=== PATIENT | male | born 1960 | race Caucasian/White ===

== ENCOUNTER 2016-07-09 18:06 | Inpatient (IN) | payer MEDICARE ==
[~2016-07-09] VITALS: Ht 172.7 cm; Wt 75.3 kg
[2016-07-09] MEDS ORDERED: VANCOMYCIN PER PHARMACY IV ONE (18:30)
[2016-07-09] MEDS ORDERED: PLEASE ENTER HEIGHT AND WEIGHT MC SCH (18:30)
[2016-07-09] MEDS ORDERED: SODIUM CHLORIDE 0.9% 1,000ML IVBOLUS ONE (18:30)
[2016-07-09] MEDS ORDERED: SODIUM CHLORIDE FLUSH 10ML SYR IVF ONE (18:30)
[2016-07-09] MEDS ORDERED: PIPERACILLIN/TAZO/PMX 3.375GM 50 ML IVPB ONE (18:30)
[2016-07-09] MEDS ORDERED: PLEASE ENTER ALLERGIES MC SCH ×2 (18:30)
[2016-07-09] MEDS ORDERED: PIPERACILLIN/TAZO/PMX 3.375GM 50 ML ONE (18:49)
[2016-07-09 18:59] LABS: ASPARTATE AMINO TRANSFERASE 49 U/L (15-37); BLOOD UREA NITROGEN 24 mg/dL (7-18)
[2016-07-09 19:32] LABS: C-REACTIVE PROTEIN, QUANT > 19.00 mg/dL (0.02-0.49)
[2016-07-09] MEDS ORDERED: SODIUM CHLORIDE 0.9% 1,000 ML IV ONE (22:00)
[2016-07-09] MEDS ORDERED: SODIUM CHLORIDE 0.9% 1,000 ML IV SCH (23:52)
[2016-07-10] MEDS ORDERED: DOCUSATE 100 MG CAPSULE PO PRN
[2016-07-10] MEDS ORDERED: ACETAMINOPHEN 325 MG TABLET PO PRN
[2016-07-10] MEDS ORDERED: TEMAZEPAM 15 MG CAPSULE PO PRN
[2016-07-10] MEDS ORDERED: PHARMACOKINETIC MONITORING MC PRN (00:30)
[2016-07-10] MEDS ORDERED: VANCOMYCIN 1,800 MG in SODIUM CHLORIDE 0.9% 250 ML IV SCH (01:00)
[2016-07-10] MEDS: PIPERACILLIN/TAZO/PMX 3.375GM 50 ML IV SCH ×4 (01:53→20:42)
[2016-07-10 01:56] VITALS: BP 104/62
[2016-07-10 02:00] VITALS: BP 94/57
[2016-07-10] MEDS: INSULIN REGULAR 100 UNITS/ML, 3ML VIAL SQ-INSULIN SCH ×5 (02:28→20:54)
[2016-07-10 06:03] LABS: BLOOD UREA NITROGEN 27 mg/dL (7-18)
[2016-07-10] MEDS ORDERED: VANCOMYCIN PER PHARMACY MC PRN (06:30)
[2016-07-10] MEDS: SODIUM CHLORIDE 0.9% 1,000 ML IV SCH (08:03)
[2016-07-10 08:25] VITALS: BP 109/71
[2016-07-10] MEDS: HYDROmorphone 2 MG/ML, 1ML IV PRN ×2 (11:05→19:23)
[2016-07-10] MEDS ORDERED: GADOBUTROL 7.5 MMOL/7.5 ML PFS ONE (13:11)
[2016-07-10 13:55] VITALS: BP 106/60
[2016-07-10] MEDS ORDERED: SUCCINYLCHOLINE 20 MG/ML, 10ML ONE (16:24)
[2016-07-10] MEDS ORDERED: PROPOFOL 10 MG/ML, 20ML ONE (16:24)
[2016-07-10] MEDS ORDERED: METOCLOPRAMIDE 5 MG/ML, 2ML ONE (16:24)
[2016-07-10] MEDS ORDERED: NEOSTIGMINE 1 MG/ML, 10ML ONE (16:24)
[2016-07-10] MEDS ORDERED: ONDANSETRON 2MG/ML, 2ML ONE (16:24)
[2016-07-10] MEDS ORDERED: ROCURONIUM 10 MG/ML ONE (16:24)
[2016-07-10] MEDS ORDERED: GLYCOPYRROLATE 0.2MG/1ML ONE (16:24)
[2016-07-10] MEDS ORDERED: FENTANYL PF 100 MCG/2ML ONE ×3 (16:31→18:17)
[2016-07-10] MEDS ORDERED: OXYcodone 5 MG/5 ML ORAL.SOL UDC PO PRN (18:00)
[2016-07-10] MEDS ORDERED: ONDANSETRON 2MG/ML, 2ML IVPush PRN (18:00)
[2016-07-10] MEDS ORDERED: PROMETHAZINE 25 MG/ML, 1ML IV PRN (18:00)
[2016-07-10] MEDS ORDERED: hydrALAzine 20 MG/ML, 1ML IV PRN (18:00)
[2016-07-10] MEDS ORDERED: HYDROmorphone 1 MG/ML, 1ML IV PRN (18:00)
[2016-07-10] MEDS ORDERED: LABETALOL 5MG/ML, 20ML IV PRN ×2 (18:00)
[2016-07-10] MEDS ORDERED: OXYcodone 5 MG/5 ML ORAL.SOL UDC ONE (18:17)
[2016-07-10] MEDS: FENTANYL PF 100 MCG/2ML IV PRN ×2 (18:20→18:25)
[2016-07-10 18:53] VITALS: BP 95/66
[2016-07-10] MEDS: VANCOMYCIN 1,300 MG in SODIUM CHLORIDE 0.9% 250 ML IV SCH (21:00)
[2016-07-10 23:27] VITALS: BP 106/66
[2016-07-11] MEDS: HYDROmorphone 2 MG/ML, 1ML IV PRN (00:38)
[2016-07-11] MEDS: SODIUM CHLORIDE 0.9% 1,000 ML IV SCH ×3 (00:38→16:00)
[2016-07-11] MEDS: ONDANSETRON 2MG/ML, 2ML IVP PRN (01:42)
[2016-07-11] MEDS: OXYcodone IR 5MG TABLET PO PRN ×5 (01:43→20:21)
[2016-07-11] MEDS: PIPERACILLIN/TAZO/PMX 3.375GM 50 ML IV SCH ×4 (01:43→20:21)
[2016-07-11 02:04] VITALS: BP 102/64
[2016-07-11 06:05] LABS: BLOOD UREA NITROGEN 18 mg/dL (7-18)
[2016-07-11 06:40] VITALS: BP 101/61
[2016-07-11] MEDS: INSULIN REGULAR 100 UNITS/ML, 3ML VIAL SQ-INSULIN SCH ×4 (07:40→22:23)
[2016-07-11] MEDS: VANCOMYCIN 1,300 MG in SODIUM CHLORIDE 0.9% 250 ML IV SCH ×2 (09:16→22:02)
[2016-07-11] MEDS: ENOXAPARIN 40 MG/0.4 ML SQ SCH (11:03)
[2016-07-11 13:05] VITALS: BP 102/63
[2016-07-11 19:56] VITALS: BP 98/59
[2016-07-12 00:55] VITALS: BP 99/62
[2016-07-12] MEDS: OXYcodone IR 5MG TABLET PO PRN ×3 (02:56→11:24)
[2016-07-12] MEDS: PIPERACILLIN/TAZO/PMX 3.375GM 50 ML IV SCH ×3 (02:56→15:11)
[2016-07-12] MEDS: SODIUM CHLORIDE 0.9% 1,000 ML IV SCH ×3 (02:56→22:45)
[2016-07-12 06:27] LABS: BLOOD UREA NITROGEN 22 mg/dL (7-18)
[2016-07-12] MEDS: INSULIN REGULAR 100 UNITS/ML, 3ML VIAL SQ-INSULIN SCH ×5 (06:40→20:20)
[2016-07-12 06:54] VITALS: BP 100/62
[2016-07-12] MEDS: ONDANSETRON 2MG/ML, 2ML IVP PRN ×2 (08:53→17:25)
[2016-07-12] MEDS: ENOXAPARIN 40 MG/0.4 ML SQ SCH (10:21)
[2016-07-12] MEDS: TAMSULOSIN 0.4 MG CAP.ER.24H PO SCH (10:23)
[2016-07-12] MEDS ORDERED: CEFAZOLIN PMX 2GM/100ML 100 ML IV SCH (15:30)
[2016-07-12 15:51] VITALS: BP 92/55
[2016-07-12] MEDS: CEFAZOLIN PMX 2GM/50ML 50 ML IV SCH (17:28)
[2016-07-12] MEDS ORDERED: ALUMINUM/MAG/SIMETHICONE 30 ML UDC PO ONE (18:00)
[2016-07-12 20:06] VITALS: BP 111/67
[2016-07-13] VITALS (9 sets, daily range): BP systolic 91–114; BP diastolic 53–71
[2016-07-13] MEDS: SODIUM CHLORIDE 0.9% 1,000 ML IV SCH ×2 (04:58→13:06)
[2016-07-13] MEDS: CEFAZOLIN PMX 2GM/50ML 50 ML IV SCH ×2 (04:58→20:22)
[2016-07-13] MEDS: OXYcodone IR 5MG TABLET PO PRN ×3 (05:05→16:23)
[2016-07-13 06:19] LABS: BLOOD UREA NITROGEN 25 mg/dL (7-18)
[2016-07-13] MEDS: ENOXAPARIN 40 MG/0.4 ML SQ SCH (08:26)
[2016-07-13] MEDS: TAMSULOSIN 0.4 MG CAP.ER.24H PO SCH (08:26)
[2016-07-13] MEDS: INSULIN REGULAR 100 UNITS/ML, 3ML VIAL SQ-INSULIN SCH ×4 (08:26→20:52)
[2016-07-13] MEDS ORDERED: ACETAMINOPHEN 325 MG TABLET PO ONE (10:30)
[2016-07-13] MEDS ORDERED: ALUMINUM/MAG/SIMETHICONE 30 ML UDC PO PRN (22:00)
[2016-07-14] MEDS: SODIUM CHLORIDE 0.9% 1,000 ML IV SCH ×4 (01:32→23:26)
[2016-07-14 01:52] VITALS: BP 120/67
[2016-07-14 06:01] LABS: BLOOD UREA NITROGEN 21 mg/dL (7-18)
[2016-07-14 07:24] VITALS: BP 130/75
[2016-07-14] MEDS: CEFAZOLIN PMX 2GM/50ML 50 ML IV SCH ×2 (08:21→16:54)
[2016-07-14] MEDS: PROMETHAZINE 25 MG/ML, 1ML IM PRN (08:22)
[2016-07-14] MEDS ORDERED: MAGNESIUM SULFATE PMX 2GM/50ML 50 ML IV ONE (09:00)
[2016-07-14] MEDS: INSULIN REGULAR 100 UNITS/ML, 3ML VIAL SQ-INSULIN SCH ×4 (09:55→20:26)
[2016-07-14] MEDS: MAGNESIUM CHLORIDE 64 MG TABLET.DR PO SCH ×2 (09:56→20:26)
[2016-07-14] MEDS: TAMSULOSIN 0.4 MG CAP.ER.24H PO SCH (09:56)
[2016-07-14] MEDS: ENOXAPARIN 40 MG/0.4 ML SQ SCH (09:56)
[2016-07-14 14:38] VITALS: BP 111/65
[2016-07-14 14:48] LABS: DAU SCREEN DISCLAIMER
[2016-07-14 18:38] VITALS: BP 120/73
[2016-07-14] MEDS: OXYcodone IR 5MG TABLET PO PRN (22:16)
[2016-07-15] MEDS: CEFAZOLIN PMX 2GM/50ML 50 ML IV SCH ×3 (00:11→17:47)
[2016-07-15 02:00] VITALS: BP 113/68
[2016-07-15] MEDS: SODIUM CHLORIDE 0.9% 1,000 ML IV SCH ×3 (05:20→19:00)
[2016-07-15] MEDS: OXYcodone IR 5MG TABLET PO PRN ×2 (05:46→17:47)
[2016-07-15 06:02] LABS: BLOOD UREA NITROGEN 18 mg/dL (7-18)
[2016-07-15 07:37] VITALS: BP 106/66
[2016-07-15] MEDS: INSULIN REGULAR 100 UNITS/ML, 3ML VIAL SQ-INSULIN SCH ×4 (08:28→22:04)
[2016-07-15] MEDS: MAGNESIUM CHLORIDE 64 MG TABLET.DR PO SCH ×2 (08:29→22:02)
[2016-07-15] MEDS: ENOXAPARIN 40 MG/0.4 ML SQ SCH (08:29)
[2016-07-15] MEDS: TAMSULOSIN 0.4 MG CAP.ER.24H PO SCH (08:29)
[2016-07-15 12:46] VITALS: BP 126/75
[2016-07-15] MEDS: ONDANSETRON 2MG/ML, 2ML IVP PRN (17:46)
[2016-07-15 19:45] VITALS: BP 131/91
[2016-07-15] MEDS: PROMETHAZINE 25 MG/ML, 1ML IM PRN (22:03)
[2016-07-16] MEDS: SODIUM CHLORIDE 0.9% 1,000 ML IV SCH ×2 (01:40→07:59)
[2016-07-16] MEDS: CEFAZOLIN PMX 2GM/50ML 50 ML IV SCH ×2 (01:57→12:18)
[2016-07-16 03:12] VITALS: BP 131/78
[2016-07-16 07:35] VITALS: BP 126/75
[2016-07-16] MEDS: INSULIN REGULAR 100 UNITS/ML, 3ML VIAL SQ-INSULIN SCH ×2 (07:59→12:19)
[2016-07-16] MEDS: ENOXAPARIN 40 MG/0.4 ML SQ SCH (08:09)
[2016-07-16] MEDS: TAMSULOSIN 0.4 MG CAP.ER.24H PO SCH (08:09)
[2016-07-16] MEDS: MAGNESIUM CHLORIDE 64 MG TABLET.DR PO SCH (08:09)
[2016-07-16] MEDS: OXYcodone IR 5MG TABLET PO PRN (09:31)
[2016-07-16] MEDS ORDERED: HYDR2VIA2 IV (11:34)
[2016-07-16] MEDS ORDERED: TEMA15CA6 PO (11:34)
[2016-07-16] MEDS ORDERED: OXYC5TAB3 PO (11:34)
[2016-07-16] MEDS ORDERED: ENOX40SY4 SQ (11:34)
[2016-07-16] MEDS ORDERED: ONDA4VIA4 IVP (11:34)
[2016-07-16] MEDS ORDERED: MAGN64TA9 PO (11:34)
[2016-07-16] MEDS ORDERED: CEFA2PIG3 IV (11:34)
[2016-07-16] MEDS ORDERED: INSU100V5 SQ-INSULIN (11:34)
[2016-07-16] MEDS ORDERED: DOCU-30 PO (11:34)
[2016-07-16] MEDS ORDERED: ACET325T14 PO (11:34)
[2016-07-16] MEDS ORDERED: TAMS-11 PO (11:34)
[2016-07-16 13:12] VITALS: BP 134/84
[2016-07-16] MEDS ORDERED: PNEUMOCOCCAL 23 VACCINE IM-VACC ONE (13:30)
== END 2016-07-16 14:18 | DRG 853 ==
LOC: ED 19:01 → EDIP 21:40 → 4NOR 23:05
PROVIDERS: ADMIT Internal Medicine; ATTEND Internal Medicine
PROC: 0Y6F0ZZ Detachment at Right Knee Region, Open Approach (ICD-10-PCS; principal; 2016-07-10 17:00)
PROC: 0PBQ0ZZ Excision of Left Metacarpal, Open Approach (ICD-10-PCS; 2016-07-10 17:00)
PROC: 30233N1 Transfusion of Nonautologous Red Blood Cells into Peripheral Vein, Percutaneous Approach (ICD-10-PCS; 2016-07-13)
PROC: 02HV33Z Insertion of Infusion Device into Superior Vena Cava, Percutaneous Approach (ICD-10-PCS; 2016-07-16)
PROC: B5181ZA Fluoroscopy of Superior Vena Cava using Low Osmolar Contrast, Guidance (ICD-10-PCS; 2016-07-16)
PROC: B548ZZA Ultrasonography of Superior Vena Cava, Guidance (ICD-10-PCS; 2016-07-16)
DX: A40.1 Sepsis due to streptococcus, group B (principal); E43 Unspecified severe protein-calorie malnutrition; M86.9 Osteomyelitis, unspecified; L03.114 Cellulitis of left upper limb; E87.1 Hypo-osmolality and hyponatremia; E11.52 Type 2 diabetes mellitus with diabetic peripheral angiopathy with gangrene; L02.512 Cutaneous abscess of left hand; N17.9 Acute kidney failure, unspecified; D63.8 Anemia in other chronic diseases classified elsewhere; E11.621 Type 2 diabetes mellitus with foot ulcer; E11.65 Type 2 diabetes mellitus with hyperglycemia; E11.69 Type 2 diabetes mellitus with other specified complication; L97.519 Non-pressure chronic ulcer of other part of right foot with unspecified severity; M65.9 Synovitis and tenosynovitis, unspecified; R33.9 Retention of urine, unspecified; M54.9 Dorsalgia, unspecified; Z79.82 Long term (current) use of aspirin; Z82.3 Family history of stroke; Z87.891 Personal history of nicotine dependence
CPT/HCPCS: 36415; 36569; 71010; 76937; 77001; 80048; 80053; 80202; 80307; 81001; 82962; 83605; 83735; 84145; 85025; 85610; 85651; 85730; 86140; 86850; 86900; 86923; 87040; 87070; 87075; 87077; 87086; 87147; 87181; 87186; 87205; 88307; 90732; 93005; 93306; 96365; 96366; 96375; A9585; J0690; J1170; J1650; J1815; J2405; J2543; J2550; J2704; J2710; J3010; J3370; J3490; C1751; J0330; J2765; J3475; J7030; J7050; P9016